=== PATIENT | female | born 1980 | race Caucasian/White ===

== ENCOUNTER 2020-10-24 11:19 | Day surgery (SDC) | payer OTHER ==
[~2020-10-24] VITALS: Ht 154.9 cm; Wt 94.8 kg
[2020-10-24] VITALS (7 sets, daily range): BP systolic 124–145; BP diastolic 73–83
[2020-10-24] MEDS ORDERED: NO HOME MEDS (11:54)
[2020-10-24] MEDS ORDERED: IBUP-2417 PO (12:28)
== END 2020-10-24 14:05 | disposition home or self-care (01) ==
LOC: SSTAY O 11:19
PROVIDERS: ATTEND Radiology Vascular & Interventional Radiology
DX: R59.0 Localized enlarged lymph nodes (principal); Z20.822 Contact with and (suspected) exposure to COVID-19; Z79.899 Other long term (current) drug therapy
CPT/HCPCS: 36415; 38505; 76942; U0003; 20206